=== PATIENT | male | born 1995 | race Caucasian/White ===

== ENCOUNTER 2021-02-18 13:27 | Emergency (ER) | payer BC ==
[~2021-02-18] VITALS: Ht 190.5 cm; Wt 86.2 kg
[~2021-02-18 13:27] MED LIST: NAPR500 PO
[2021-02-18] MEDS ORDERED: AMOCLA875 PO (15:16)
== END 2021-02-18 15:09 | disposition home or self-care (01) ==
LOC: ER 13:27
DX: H66.92 Otitis media, unspecified, left ear (principal)
CPT/HCPCS: 99282

== ENCOUNTER 2022-03-11 05:43 | Emergency (ER) | payer OTHER ==
[~2022-03-11] VITALS: Ht 190.5 cm; Wt 86.2 kg
[~2022-03-11 05:43] MED LIST changes: +AMOCLA875 PO
== END 2022-03-11 07:34 | disposition home or self-care (01) ==
LOC: ER 05:43
DX: S51.812A Laceration without foreign body of left forearm, initial encounter (principal); W31.89XA Contact with other specified machinery, initial encounter; Z23 Encounter for immunization
CPT/HCPCS: 90714